=== PATIENT | female | born 1965 | race Caucasian/White ===

== ENCOUNTER 2020-08-02 14:16 | Outpatient (CLI) | payer OTHER, SELFPAY ==
--- NOTE | ~2020-08-02 | MM_ITS ---
EXAMINATION: MM screening michelle BI w salomón HISTORY: Screening TECHNIQUE: Craniocaudal and mediolateral oblique 3-D tomosynthesis images were obtained and synthetic 2-D images were generated. CAD analysis was submitted and interpreted. COMPARISON: Comparison to multiple prior studies sequentially, with oldest reviewed study dated 12/06. BREAST PARENCHYMAL COMPOSITION: The breasts are extremely dense, which lowers the sensitivity of mamm ography FINDINGS: There is no evidence of suspicious mass, calcification, or architectural distortion to sugg est malignancy in either breast. There has been no suspicious interval change. IMPRESSION: 1. No mammographic evidence of malignancy. 2. Recommend routine screening mammography in one year. BI-RADS Category 1: Negative Reviewed, dictated and finalized at location A. CTION COORDINATION POWER ENGINEER
== END 2020-08-02 14:17 | disposition home or self-care (01) ==
LOC: ANHIMG 14:19
PROVIDERS: Visit Provider Obstetrics & Gynecology
DX: Z12.31 Encounter for screening mammogram for malignant neoplasm of breast (principal)
CPT/HCPCS: 77063; 77067

== ENCOUNTER → 2020-08-20 12:58 | Outpatient (CLI) | payer OTHER, SELFPAY ==
--- NOTE | ~2020-08-20 | US_ITS ---
EXAMINATION: US transvaginal DATE: 08/20/2020 13:39 INDICATION: Postmenopausal bleeding Comparison:Ultrasound dated 03/11/2018 TECHNIQUE: Multiple endovaginal sonographic images of the pelvis performed. FINDINGS: The uterus measures 6.4 x 3.5 x 5.9 cm. Uterus is retroverted. The endometrial complex lauren ures 6 mm. The right ovary measures 1.6 x 0.7 x 1.7 cm and the left ovary measures 3.4 x 2.9 x 3.4 cm. There is a complex hypoechoic left adnexal mass measuring 3.2 x 3.1 x 2.6 cm containing coarse internal echoge ivan foci. There is no free fluid in the pelvis. There are no abnormal masses seen on either side. IMPRESSION: 1. Complex 3.2 cm left adnexal mass. Differential diagnosis includes benign etiologies such as hemorr hagic cyst, proteinaceous cyst, cystadenoma, complex peritoneal inclusion cyst and malignancy includi ng cystadenocarcinoma. 2: Thickened endomtrial complex. The differential diagnosis includes endometrial hyperplasia, polyp a nd carcinoma. Biopsy is recommended. Reviewed, dictated and finalized at location A. EBOARD OPERATOR IMPRESSION: 1. Complex 3.2 cm left adnexal mass. Differential diagnosis includes benign halie ologies such as hemorrhagic cyst, proteinaceous cyst, cystadenoma, complex cassie toneal inclusion cyst and malignancy including cystadenocarcinoma. 2: Thickened endomtrial complex. The differential diagnosis includes endometria l hyperplasia, polyp and carcinoma. Biopsy is recommended.
== END ==
PROVIDERS: Visit Provider Obstetrics & Gynecology
DX: N95.0 Postmenopausal bleeding (principal); R19.09 Other intra-abdominal and pelvic swelling, mass and lump
CPT/HCPCS: 76830

== ENCOUNTER → 2020-10-30 00:13 | Outpatient (CLI) | payer OTHER, SELFPAY ==
[2020-10-30 20:45] LABS: SARS-CoV-2 RNA PCR Negative
== END ==
PROVIDERS: Visit Provider Obstetrics & Gynecology
DX: Z01.812 Encounter for preprocedural laboratory examination (principal); Z20.822 Contact with and (suspected) exposure to COVID-19
CPT/HCPCS: C9803; U0003; U0005

== ENCOUNTER 2020-11-02 00:14 | Day surgery (SDC) | payer OTHER, SELFPAY ==
[2020-10-22 14:02] VITALS: BMI 22.1
--- NOTE | 2020-11-02 09:30 | PM.HPGS ---
History of Present Illness History of Present Illness Consent: Risks, benefits, and alternatives have been discussed and questions answered. Patient agrees to proceed with procedure. Chief complaint: post menopausal bleeding Narrative: Lakeshia Govea is a 55 year old female nullip presented to the office with post menopausal bleeding. Review of Systems Review of Systems: All systems reviewed & are unremarkable except as noted in HPI and below PMFSH Past Medical History Medical History (Updated 11/02/20 @ 09:35 by Tate Landaverde MD) Postmenopausal bleeding Social History Social History Smoking status: Never smoker Alcohol intake: current Drinks per week: 7 Substance use: never Substance use type: does not use Living arrangements: with family Spiritual care concerns: No Meds Home Medications and Allergies Home Medications Medication Instructions Recorded Confirmed Type No Home Medications 10/22/20 10/22/20 History Allergies Allergy/AdvReac Type Severity Reaction Status Date / Time acetaminophen [From Vicodin] Allergy Intermediate Nausea and Verified 10/22/20 14:01 Vomiting fentanyl Allergy Intermediate Nausea and Verified 10/22/20 14:01 Vomiting hydrocodone [From Vicodin] Allergy Intermediate Nausea and Verified 10/22/20 14:01 Vomiting Exam Resp: Effort & Inspection: normal respiratory effort Cardio: Rate: regular rate Rhythm: regular rhythm GI: Inspection: normal to inspection : External Female Exam: normal external appearance Speculum Exam - Vagina: normal appearance of the vagina Speculum Exam - Cervix: normal appearance of the cervix Bimanual exam- vagina & uterus: normal bimanual exam Assessment and Plan Assessment and plan (1) Postmenopausal bleeding: Code(s): N95.0 - Postmenopausal bleeding Status: Acute Assessment and Plan: scheduled for a hysteroscopy dilation and curettage. Risk and benefits reviewd in detail.
--- NOTE | 2020-11-02 13:06 | WPDHPUPDATE1 ---
History and Physical Update Update Date/Time: 11/02/20 13:06 History and Physical has been reviewed, including an updated exam of the patient. There are NO changes in the patient's condition. Risks, benefits, and alternatives have been discussed and questions answered. Patient agrees to proceed with procedure.
--- NOTE | 2020-11-02 13:10 | SUR.PREOP ---
1255; CALLED PT TO COME IN EARLY, NO ANSWER, MESSAGE LEFT ON VM
--- NOTE | 2020-11-02 13:47 | SUR.PREOP ---
1340; PT ATE LUNCH CONSISTING OF CARROTS AND HUMMUS, SALTINE CRACKERS, AND 2 GLASSES OF WATER AT 1230. DR BROWN AND DR FULTON NOTIFIED. PT TOOK HOME XANAX WITH WATER AT [address] BROWN INSTRUCTIONS.
[2020-11-02 13:55] VITALS: BMI 23.2
[2020-11-02 14:06] VITALS: BP 131/79; PULSE 83; RESP 18; TEMP 37.2; O2SAT 100
[2020-11-02 14:55] VITALS: BP 141/80; PULSE 92; RESP 16; O2SAT 99
[2020-11-02 15:05] VITALS: BP 162/89; PULSE 82; RESP 18; O2SAT 99
[2020-11-02] MEDS: LIDOCAINE HCL 1% LOCAL INJ 20 ML VIAL 50 ML INFILTRATE (15:06)
[2020-11-02 15:15] VITALS: BP 152/79; PULSE 76; RESP 18; O2SAT 100
[2020-11-02 15:20] VITALS: BP 147/90; PULSE 70; RESP 20; O2SAT 97
--- NOTE | 2020-11-02 15:28 | PM.PROC ---
Procedure Note - Detailed Date of procedure: 11/02/20 Pre-op diagnosis: post menopausal bleeding Post-op diagnosis: same Procedure performed: hysteroscopy with dilation and curettage Description of procedure: Patient was taken to the at the OR with IV running she was prepared and draped in a normal sterile fashion. And placed in a lithotomy position a bivalve speculum was placed into the vagina. The anterior lip of the cervix was grasped with a single-tooth tenaculum the cervix was injected at the 2 and 10 o'clock position with 5cc of lidocaine bilaterally the uterus was sounded to 7cm and the cervix was serially dilated with Hegar dilators to a 7. The hysteroscope was introduced and noted atrophic uterus. The hysteroscope was removed and a sharp curettage was performed in all 4 quadrants of the uterus and sent to pathology. Patient tolerated the procedure well was taken to recovery room in stable condition. Anesthesia: local Surgeon: Tate Landaverde MD Estimated blood loss (mL): 10 Drains: No Packing: No Pathology: yes Complications: None Condition: stable Disposition: same day Findings: atrophic uterus
== END 2020-11-02 15:54 | disposition home or self-care (01) ==
PROVIDERS: Visit Provider Obstetrics & Gynecology
PROC: 0U5B8ZZ Destruction of Endometrium, Via Natural or Artificial Opening Endoscopic (ICD-10-PCS; CPT 58563; principal; 2020-11-02 14:30)
DX: N95.0 Postmenopausal bleeding (principal)
CPT/HCPCS: 58558; 88305; A9270; J7030

== ENCOUNTER 2021-08-19 15:05 | Outpatient (CLI) | payer BC, OTHER, SELFPAY ==
--- NOTE | ~2021-08-19 | MM_ITS ---
EXAMINATION: MM screening michelle BI w salom[place] HISTORY: Screening TECHNIQUE: Craniocaudal and mediolateral oblique 3-D tomosynthesis images were obtained and synthetic 2-D images were generated. CAD analysis was submitted and interpreted. COMPARISON: Comparison to multiple prior studies sequentially, with oldest reviewed study dated 04/20. BREAST PARENCHYMAL COMPOSITION: The breasts are extremely dense, which lowers the sensitivity of mamm ography FINDINGS: There is no evidence of suspicious mass, calcification, or architectural distortion to sugg est malignancy in either breast. There has been no suspicious interval change. IMPRESSION: 1. No mammographic evidence of malignancy. 2. Recommend routine screening mammography in one year. BI-RADS Category 1: Negative Reviewed, dictated and finalized at location A. RONMENTAL HEALTH SANITARIAN
== END 2021-08-19 15:06 | disposition home or self-care (01) ==
PROVIDERS: PCP Family Medicine; Visit Provider Family Medicine
DX: Z12.31 Encounter for screening mammogram for malignant neoplasm of breast (principal)
CPT/HCPCS: 77063; 77067

== ENCOUNTER 2022-10-16 16:27 | Outpatient (CLI) | payer BC, OTHER, SELFPAY ==
--- NOTE | ~2022-10-16 | MM_ITS ---
EXAMINATION: MM screening michelle BI w salom[place] HISTORY: Screening TECHNIQUE: Craniocaudal and mediolateral oblique 3-D tomosynthesis images were obtained and synthetic 2-D images were generated. CAD analysis was submitted and interpreted. COMPARISON: Comparison to multiple prior studies sequentially, with oldest reviewed study dated 04/20. BREAST PARENCHYMAL COMPOSITION: The breasts are extremely dense, which lowers the sensitivity of mamm ography FINDINGS: There is no evidence of suspicious mass, calcification, or architectural distortion to sugg est malignancy in either breast. There has been no suspicious interval change. IMPRESSION: 1. No mammographic evidence of malignancy. 2. Recommend routine screening mammography in one year. BI-RADS Category 1: Negative Reviewed, dictated and finalized at location A.
== END 2022-10-16 16:28 | disposition home or self-care (01) ==
PROVIDERS: PCP Family Medicine; Visit Provider Obstetrics & Gynecology
DX: Z12.31 Encounter for screening mammogram for malignant neoplasm of breast (principal)
CPT/HCPCS: 77063; 77067

== ENCOUNTER 2024-02-18 12:47 | Outpatient (CLI) | payer BC, OTHER, SELFPAY ==
--- NOTE | ~2024-02-18 | MMUS_ITS ---
EXAMINATION: MM diagnostic michelle BI w salom[place], US breast BI complete HISTORY: Palpable breast abnormality. TECHNIQUE: Additional 3-D tomosynthesis images of the breasts were performed and synthetic 2-D images were generated. CAD analysis was submitted and interpreted. High resolution bilateral complete breas t ultrasound was performed. COMPARISON: Comparison to multiple prior studies sequentially, with oldest reviewed study dated 05/20. BREAST PARENCHYMAL COMPOSITION: Dense: The breasts are extremely dense, which lowers the sensitivity of mammography. FINDINGS: MAMMOGRAPHIC FINDINGS: There are no suspicious masses, calcifications or architectural distortion in either breast to sugges t malignancy. ULTRASOUND: Complete bilateral US of all 4 quadrants of the breasts and retroareolar region was reviewed. Normal heterogeneous echotexture without focal solid or cystic mass. IMPRESSION: 1. No evidence for malignancy in either breast. 2. Routine yearly screening mammogram and regular clinical breast examination are recommended. BI-RADS CATEGORY 1 - NEGATIVE Reviewed, dictated and finalized at location B. IMPRESSION: 1. No evidence for malignancy in either breast. 2. Routine yearly screening mammogram and regular clinical breast examination a re recommended. BI-RADS CATEGORY 1 - NEGATIVE
== END 2024-02-18 12:48 | disposition home or self-care (01) ==
PROVIDERS: PCP Family Medicine; Visit Provider Obstetrics & Gynecology
DX: N63.21 Unspecified lump in the left breast, upper outer quadrant (principal)
CPT/HCPCS: 76641; 77062; 77066; G0279

== ENCOUNTER 2024-06-13 00:09 | Day surgery (SDC) | payer BC, OTHER, SELFPAY ==
[2024-06-07 12:38] VITALS: BMI 21.9
--- NOTE | 2024-06-07 12:55 | PC.NURSE ---
Report to the Outpatient Waiting Room, entrance under the green pavilion located off [facility], at time _09:00am____on date _06/13/24 __Planned Procedure Time: 1100am .? Time changes happen often and if your time is changed the preop area will call you the afternoon before. - You and your visitor will be asked to self-screen and do not enter if you have any COVID symptoms. Please call surgeon if you need to reschedule. - A mask is optional within the hospital at this time. Patients may have clear liquids (water, carbonated beverages, clear teas, apple juice) until 3 hours prior to surgery with a maximum of 20 ounces. - No food from midnight until time of surgery and no smoking. This includes no chewing gum, candy or mints.(0800am) Take only the following medications with a SIP of water on the morning of surgery: None DO NOT STOP ANY OF YOUR OTHER PRESCRIPTION MEDICATIONS PRIOR TO SURGERY EXCEPT THE FOLLOWING Medications to discontinue per physician None Date to take last dose None Please no make-up, nail turkmen, hairspray, perfume, deodorant, or body powder the day of surgery.? No jewelry (including any body piercings) or valuables the day of surgery, leave them at home.? Please take a shower or bath the night before, or the morning of, surgery with an antibacterial soap.? Wear comfortable, loose fitting clothing. - Jewelry must be removed prior to entering the operating room.? Rings and piercings that are not removed may be cut off. - The hospital will not accept responsibility for valuables.? - Please leave all valuables, including medications, at home the day of surgery. If you are going home after surgery, a licensed hi lo driver must drive you home.? - NO public transportation without another adult if you receive anesthesia. - We recommend that an adult stay with you for 24 hours following discharge. - We also recommend that you do not drive, make important decision, drink alcoholic beverages, or take any drugs that were not prescribed by your health care provider for at least 24 hours after your discharge time. Follow any additional instructions given to you from your surgeon. Telephone instructions given to __patient and asked if any additional questions and then verbalized understanding. Patient advised to call surgeon office or pre surgery nurse liaison [phone] if any additional questions.
--- NOTE | 2024-06-12 14:07 | PM.IMHP ---
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 She knew that she had a history of adnexal mass when she was seen at [facility]. She has a h/o HSC/D&C in 2016 and 2020 due to PMB; benign tissue noted on path. US in 10/2020 also showed a left adnexal mass measuring 3.3cm. Repeat BIOFUELS TECHNOLOGY DEVELOPMENT MANAGER US 01/2024 showed a complex adnexal mass measuring ~3.3cm. Tumor markers were negative. She does have a h/o PMB; s/p D&C x2, but endometrial stripe was normal, has not had any further episodes of PMB since her last D&C. She denies any overt pelvic pain. She does report that her mother did have ovarian cancer, and wants to proceed with surgery; has done a lot of research herself. Review of Systems Constitutional: Constitutional: Denies chills, Denies fever(s) and Denies headache(s) Eyes: Eyes: Denies change in vision ENT: Denies dizziness and Denies headache(s) Cardiovascular: Cardiovascular: Denies chest pain and Denies dyspnea Respiratory: Respiratory: Denies cough and Denies dyspnea Gastrointestinal: Gastrointestinal: Denies abdominal pain and Denies change in stool character Genitourinary: Genitourinary: Denies abnormal menses, Denies pelvic pain, Denies vaginal discharge, Denies vaginal odor and Denies vaginal pruritus Neurologic: Denies dizziness and Denies headache(s) Psychiatric: Psychiatric: Denies anxiety and Denies depression [facility]LY [facility] Past Medical History Medical History Ovarian mass, left Postmenopausal bleeding Surgical History Surgical History H/O breast biopsy H/O gynecological procedure hscope D&C ~ 2020 H/O lumpectomy H/O wisdom tooth extraction Family History Family History Mother Hypertension Breast cancer Ovarian cancer Social History Social History Smoking status: Never smoker Alcohol intake: current Drinks per week: 1 Alcohol use details: occasional Substance use: never Substance use type: does not use Do You Feel Safe in your Home?: Yes Lack of Transportation: No Lack of Food: Never True Current Housing: I Have Housing Concerned About Future Housing: No Difficulty Paying Gas/Electric Bills: No Difficulty Paying for Meds: No Currently Unemployed: No Education: Master's Degree or Higher Difficulty w/ Childcare or Family Care: No Living arrangements: with family Additional living arrangements comments: daughter Occupation/Education: occupation Additional occupation/education comments: [employer] Gender identity (if verbalized by the patient): Female Sexual Orientation (if Verbalized by the Patient): Straight or Heterosexual Spiritual care concerns: No Meds Home Medications and Allergies Home Medications Medication Instructions Recorded Confirmed Type No Home Medications 10/22/20 06/07/24 History Allergies Allergy/AdvReac Type Severity Reaction Status Date / Time acetaminophen [From Vicodin] Allergy Intermediate Nausea and Verified 06/07/24 12:37 Vomiting fentanyl Allergy Intermediate Nausea and Verified 06/07/24 12:37 Vomiting hydrocodone [From Vicodin] Allergy Intermediate Nausea and Verified 06/07/24 12:37 Vomiting Exam Const: General: cooperative, healthy appearing, comfortable and no acute distress Orientation/consciousness: patient oriented x3 Resp: Effort & Inspection: normal respiratory effort Cardio: Rate: regular rate GI: Inspection: normal to inspection GI Palp: No abdominal tenderness and Yes Soft to palpation : Other: deferred to OR Skin: General skin exam: normal color Neuro: General: patient oriented x3 Extrem: General: normal to inspection Psych: Appearance: grossly normal Affect: normal affect Attitude: cooperative Assessment and Plan Assessment and plan (1) Ovarian mass, left: Code(s): N83.8 - Other noninflammatory disorders of ovary, fallopian tube and broad ligament Status: Acute Plan - US findings discussed in detail and the reassuring and concerning findings - Her tumor markers are completely normal, which is very reassuring that this is a benign mass (also that she has known she's had this known cyst for >3 years and it continues to only be ~3.3cm) - Discussed that we do not biopsy ovarian masses, usually just proceed with removal - Due to her age and family h/o ovarian cancer, recommend removal of both ovaries and tubes - Discussed laparoscopic bilateral salpingo-oophorectomy in detail including the risks, benefits, and downtime
[2024-06-13] VITALS (9 sets, daily range): BP systolic 136–152; BP diastolic 66–80; PULSE 60–78; RESP 14–20; TEMP 36.3–37.2; O2SAT 99–100
--- NOTE | 2024-06-13 06:37 | WPDHPUPDATE1 ---
History and Physical Update Update Date/Time: 06/13/24 06:37 History and Physical has been reviewed, including an updated exam of the patient. There are NO changes in the patient's condition. Risks, benefits, and alternatives have been discussed and questions answered. Patient agrees to proceed with Laparoscopic bilateral salpingo-oophorectomy.
[2024-06-13] MEDS: LACTATED RINGERS 1,000 ML 30 ML IV CONT ×2 (09:40→13:06)
[2024-06-13] MEDS: KETOROLAC 15 MG/ML VIAL (*BKC) IV PUSH ×2 (10:30→12:52)
--- NOTE | 2024-06-13 11:02 | WPDANESEPPF ---
Anes - Initial Pre Proc Eval Procedure: Operation Date: 06/13/24 11:00 Proposed Procedures p Robotic Assisted Laparoscopic Bilateral Salpingo Oophorectomy - Stephie Rueda MD Date/Time: 06/13/24 11:02 Surgeon: Stephie Rueda MD Pre Op Diagnosis: Lt Ovarian Cyst Patient Data Age: 59 Gender: F Height: 1.65 m Weight: 58.2 kg Last Vital Signs Temp 99.0 F 06/13/24 09:00 Pulse 78 06/13/24 09:00 Resp 16 06/13/24 09:00 BP 152/80 H 06/13/24 09:00 Pulse Ox 100 06/13/24 09:00 O2 Del Method Room Air 06/13/24 09:00 Allergies Allergy/AdvReac Type Severity Reaction Status Date / Time acetaminophen [From Vicodin] Allergy Intermediate Nausea and Verified 06/13/24 10:06 Vomiting fentanyl Allergy Intermediate Nausea and Verified 06/13/24 10:06 Vomiting hydrocodone [From Vicodin] Allergy Intermediate Nausea and Verified 06/13/24 10:06 Vomiting Home Medications Medication Instructions Recorded Confirmed Type No Home Medications 10/22/20 06/13/24 History Laboratory Tests 06/13/24 09:30 Blood Type Pending Antibody Screen Pending Patient hx anesthesia problems: none Family hx anesthesia problems: none Results Review: All pre-operative results and documents have been reviewed as part of the pre-operative evaluation. [facility] Past Medical History Medical History Ovarian mass, left Postmenopausal bleeding Surgical History Surgical History H/O breast biopsy H/O gynecological procedure hscope D&C ~ 2020 H/O lumpectomy H/O wisdom tooth extraction Family History Family History Mother Hypertension Breast cancer Ovarian cancer Social History Social History Smoking status: Never smoker Alcohol intake: current Drinks per week: 1 Alcohol use details: occasional Substance use: never Substance use type: does not use Do You Feel Safe in your Home?: Yes Lack of Transportation: No Lack of Food: Never True Current Housing: I Have Housing Concerned About Future Housing: No Difficulty Paying Gas/Electric Bills: No Difficulty Paying for Meds: No Currently Unemployed: No Education: Master's Degree or Higher Difficulty w/ Childcare or Family Care: No Living arrangements: with family Additional living arrangements comments: daughter Occupation/Education: occupation Additional occupation/education comments: [employer] Gender identity (if verbalized by the patient): Female Sexual Orientation (if Verbalized by the Patient): Straight or Heterosexual Spiritual care concerns: No Anes - Eval Final PreProcedure Day of Procedure 06/13/24 11:02 Patient weight: normal Heart: regular rate and rhythm Lungs: clear to auscultation Airway: Mallampati scale class II Neurological: alert and oriented Last oral intake: >/= 8 hours ASA classification: II Emergent: no Anesthetic plan: proceed Anesthesia type and monitoring: general ETT and standard monitoring Results Review: All pre-operative results and documents have been reviewed as part of the pre-operative evaluation. Informed Consent: The patient's anesthetic plan and its attendant risks and benefits were discussed with the patient/family/POA. Questions were solicited and answers provided to the satisfaction of the patient/family/POA.
[2024-06-13] MEDS: BUPIVACAINE/EPINEPHRINE 0.5% 50 ML VIAL 30 ML INFILTRATE (12:14)
--- NOTE | 2024-06-13 12:55 | P.OP_ITS ---
Procedure Note - Detailed Date of Procedure 06/13/24 Pre-op Diagnosis Lt Ovarian Cyst Post-op Diagnosis Same Procedure Performed Robotic assisted bilateral salpingo-oophorectomy, pelvic washings Surgeon Stephie Rueda MD Anesthesia General and Local (20cc of 0.5% marcaine w/ epi) Findings Uterus sounded to 6cm; small fibroid fundal/posteriorly noted, otherwise normal appearing. Normal right ovary and tubes. Left ovary with 3-4cm cyst. Good hemostasis at end of case. Pt requested that no narcotics were used during or after her surgery. Description of Procedure Lakeshia was taken to the operating room where she was placed under general anesthesia without issues. No pre-operative antibiotics were indicated. She was then prepped and draped in the usual sterile fashion in the dorsal lithotomy position with her legs in low Dawood stirrups, her arms tucked at her side, with a strap over her chest. A time-out was performed. My attention was turned down below where a Perez catheter was placed. A bivalve speculum was placed within the vagina. The cervix was easily identified and the anterior lip of the cervix was grasped with single-tooth tenaculum. The uterus was then sounded to 6cm. The cervix was serially dilated to allow for the [place] manipulator which was placed w/o issue. My gloves were changed and attention was then turned to the abdomen. After confirmation that an OG tube was in place; a 5 mm trocar was placed under direct visualization at Jaime's point without issue. Once intra- abdominal placement was confirmed, the abdomen was insufflated with carbon dioxide gas. An abdominal survey was performed and the above findings were noted. Two additional ports were placed on the right and left side and the camera port was placed supraumbilically under direct visualization without issues. The 5mm port was switched out for the accessory port under direct visualization. The patient was then placed in deep Trendelenburg, with the legs slightly lowered. The robot was then docked. The instruments were placed intra- abdominally under direct visualization. I then un-scrubbed and went to the robotic console. The uterus, ovaries and fallopian tubes were washed with normal saline and that fluid was then collected for pelvic washings. I then started surgery on the right side. The ureter was easily identified transperitoneally and well out of the surgical field. The IP ligament was identified and serially clamped, coagulated, and transected with good hemostasis. The uteroovarian ligament was then serially clamped, coagulated, and transected with good hemostasis. The broad ligament was then serially clamped, coagulated, and betts sected with good hemostasis and the ovary and tube were released. It was placed within the posterior cul-de-sac until the other ovary was released. The same procedure was then performed on the left side without complications. The left ovary/tube/cyst was then placed within a bag. The right ovary and tube were also placed in the same bag. The bag containing the ovaries/tubes was then brought up through the accessory port. I then scrubbed back into surgery and the accessory port was removed from the abdomen. The bag was brought out through the skin incision and opened and the right ovary/tube (normal appearing) was removed without issue. The left fallopian tube was then grasped and removed. The left ovary with cyst in the bag was unable to be pulled through the incision, even with attempting to stretch the fascial incision. The fascial incision was then slightly extended using curved Rosales scissors. The skin incision was extended using the scalpel. The left ovary/cyst in the bag was then easily removed from the abdomen. The fascia was then grasped using small Ami clamps. The fascia was then reapproximated in a running fashion using 0-Vicryl stitch and no further pneumoperitoneum was noted to be released. All instruments and ports were then removed from the abdomen. The subcutaneous tissue was reapproximated using a single 0-Vicryl stitch. The 4 laparoscopic incisions were then reapproximated using 4-0 Monocryl and covered with Dermabond. The laparoscopic incisions were infiltrated with local anesthesia for better pain control. The Perez catheter and acorn uterine manipulator were removed. Sponge, lap, instrument, and needle counts were correct at the end the procedure. Patient was awoken from general anesthesia and taken to recovery in a stable conditions with plans of discharge home. Estimated Blood Loss 20 IV Fluids 1,000 Urine Output 100 Pathology Yes (left and right ovary and fallopian tubes) Complications No immediate complications Condition Stable Disposition Same day [facility] Billing Surgery - Charge Forward: Surgery Billing
--- NOTE | 2024-06-13 13:34 | SUR.PHASEI ---
1330: Simple mask removed.
[2024-06-13] MEDS: ONDANSETRON INJ 4 MG/2 ML VIAL IV PUSH (14:23)
== END 2024-06-13 15:43 | disposition home or self-care (01) ==
PROVIDERS: PCP Family Medicine; Visit Provider Obstetrics & Gynecology
PROC: 8E0W4CZ Robotic Assisted Procedure of Trunk Region, Percutaneous Endoscopic Approach (ICD-10-PCS; CPT 49320; principal; 2024-06-13 11:00)
DX: N83.8 Other noninflammatory disorders of ovary, fallopian tube and broad ligament (principal); N83.292 Other ovarian cyst, left side; N83.291 Other ovarian cyst, right side; D39.12 Neoplasm of uncertain behavior of left ovary; Z98.890 Other specified postprocedural states; Z80.3 Family history of malignant neoplasm of breast; Z80.41 Family history of malignant neoplasm of ovary
CPT/HCPCS: 58661; S2900; 36415; 86850; 86900; 86901; 88108; 88302; 88305; J1100; J1885; J1940; J2003; J2405; J2704; J7120

== ENCOUNTER 2025-07-10 03:43 | Day surgery (SDC) | payer BC, OTHER, SELFPAY ==
[2025-06-21 08:27] VITALS: BMI 20.1
--- OUTSIDE RECORDS SUMMARY | 2025-07-10 03:46 | XMS_ITS | Clinical Summary ---
Author Organization [facility] [address] Address [address] [place] [id number] Care Team Providers Care Laminator Hand Name Role Phone Walt Ham MD Primary Care Provider Allergies Active Allergy Reactions Criticality Noted Date Comments Acetaminophen Nausea & Vomiting High 06/13/2024 Fentanyl Vomiting Low 02/06/2022 Hydrocodone Nausea & Vomiting High 06/13/2024 Hydrocodone-Acetaminophen Medications multivitamin capsule Take 1 capsule by mouth daily Active Active Problems Problem Noted Date Diagnosed Date Breast lump on left side at 2 o'clock position 1 Ovarian mass, left 05/01/2025 Postmenopausal bleeding 05/01/2025 Well woman exam 06/19/2022 Overview (07/18/2022): Lab: Pap:1990 had an abnormal, but she blames it on the [employer], normal since. Labs with pcp Michelle:due in Jul 2022 Colonoscopy:2013- 2023 BMD: Gardasil:she didn't do Assessment & Plan (07/18/2022 1:10 PM [employer]): Pap done. RTO 12m. I will send the results to the portal. If she has not heard in a week, to call the office. Vulvar irritation 06/19/2022 Assessment & Plan (07/18/2022 1:12 PM [employer]): Normal appearing exam today To let me know when the irritation returns Ways to discuss vaginal dryness briefly discussed Family history of ovarian cancer 06/19/2022 Overview (06/19/2022): 06/19/22 mom with breast and ovarian. Mu daughter with breast. Assessment & Plan (06/19/2022 2:24 PM [employer]TER): She will bring her results Dense breast tissue on mammogram 06/19/2022 Overview (06/19/2022): Pt aware Assessment & Plan (06/19/2022 2:24 PM [employer]): She is aware To michelle after first of year Encounter for medical examination to establish c are 02/07/2022 Assessment & Plan (02/07/2022 9:55 PM CDT): A(n) initial well visit to establish care has been performed today. Lakeshia Govea is not up to date on screening tests. She is in need of Breast cancer screening, Colon cancer screening, Cholesterol screening and Cervical cancer screening. She is not up to date on needed preventative vaccinations; She is in need of Tdap/Td, Zoster and Covid-19 (booster). Labs as ordered Continue good exercise practice DASH handout given Chronic infection of sinus 08/08/2011 Encounters Date Type Department Care Team Description 05/03/2025 Results Follow-Up [facility] at [address] [phone] Magda Pham PA Urine culture Urine, clean voided 05/01/2025 7:49 PM CDT - 05/01/2025 11:59 PM CDT Hospital Encounter [address] [address] Acute cystitis with hematuria Discharge Disposition: Discharge to home or self care 05/01/2025 7:45 PM CDT Office Visit [facility] [address] [phone] Prema Monroy NP Acute cystitis with hematuria (Primary Dx) from Last 3 Months Immunizations Immunization Administration Dates Next Due Influenza, Quadrivalent, Spl it, Preservative Free, Intramuscular 06/16/2018 Influenza, Unspecified 07/20/2021(Deferr ed: Patient Refused),07/20/2020(Deferred: Patient Refused) Surgical History Surgery Date Site/Laterality Comments WISDOM TOOTH EXTRACTION BREAST LUMPECTOMY Right benign DILATION AND CURETTAGE OF UTERUS 07/20/2020 - 07/19/2021 Medical History Medical History Date Comments Dense breast tissue on mammogram 2010 Family History Medical History Relation Name Comments No Known Problems Brother Coronary artery disease Father cabg x 4 Breast cancer Mother Hypertension Mother Obesity Mother Ovarian cancer Mother no genetic te sting. Heart attack Paternal Grandfather Hypertension Sister Obesity Sister Cancer Neg Hx no colon cancer cmt 06/19/22 She is negative for Brca 2010. Relation Name Status Comments Brother Alive Father Alive Maternal Grandfather Maternal Grandmother Mother Paternal Grandfather Paternal Grandmother Sister Alive Social History Tobacco Use Types Packs/Day Years Used Date Smoking Tobacco: Never AUDIT-C Answer Date Recorded Q1: How often do you have a drink containing alcohol? 4 or more times a week 06/19/2022 Q2: How many drinks containi ng alcohol do you have on a typical day when you are drinking? 1 or 2 Q3: How often do you have si x or more drinks on one occasion? Never 06/19/2022 PHQ-2 Answer Date Recorded PHQ-2 Total Score (If total score is 3 or more points, staff should administer the PHQ-9) 0 06/19/2022 Education Answer Date Recorded What is the highest level of school you have completed or the highest degree you have received? 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 Not on file Not on file Not on file Obstetrics History Para Term AB IAB SAB Ectopic Multiple Livin g Live Births 1 1 1 Date Outcome GA Total Labor Labor/2nd/3rd Weight Sex Type Anes PTL Ailyn A1 A5 Name Clin IAB Last Filed Vital Signs Vital Sign Reading Time Taken Comments Blood Pressure 131/82 05/01/2025 7:46 PM CDT Pulse 72 05/01/2025 7:46 PM CDT Temperature 36.8 C (98.2 F) 05/01/2025 7:46 PM CDT Respiratory Rate 18 05/01/2025 7:46 PM CDT Oxygen Saturation 99% 05/01/2025 7:46 PM CDT Inhaled Oxygen Concentration - - Weight 57.2 kg (126 lb) 05/01/2025 7:46 PM CDT Height 166.4 cm (5' 5.5) 02/06/2022 10:16 AM CD T Body Mass Index 20.65 02/06/2022 10:16 AM CDT Plan of Treatment Health Maintenance Due Date Last Done Comments Colon Cancer Screening-Colonoscopy 1963 DTaP/Tdap/Td Vaccine (1 - Tdap) 1974 Hepatitis B Screening 1981 Zoster Vaccine (1 of 2) 2013 Cervical Cancer Screening 06/19/2023 06/19/2022 Depression Screening 06/19/2023 06/19/2022, 02/06/2022 Regular Well Visit/Exam 18-64 06/19/2023 06/19/2022 Breast Cancer Screening-Mammogram 02/17/2025 02/18/2024, 10/16/2022 Covid-19 Vaccine (2024-2 6 season) 2025 05/24/2021, 11/08/2020, 10/11/2020 Influenza Vaccine (#1) 2025 06/16/2018 Hepatitis C Screening Completed 02/07/2022 Pneumococcal vaccine <65 Aged Out No longer eligible based on patient's age to complete this topic Procedures Procedure Name Priority Date/Time Associated Diagnosis Comments POCT URINALYSIS DIPSTICK Routine 05/01/2025 7:50 PM CDT Acute cystitis with hematuria URINE CULTURE Routine 05/01/2025 7:49 PM CDT Acute cystitis with hematuria HM MAMMOGRAPHY Routine 02/18/2024 2:54 PM CDT PAP AND HIGH RISK HPV, REFLEX TO GENOTYPING Routine 06/19/2022 2:40 PM [employer] Well woman exam HEPATITIS C ANTIBODY Routine 02/07/2022 10:14 AM CDT Encounter for hepatitis C screening test for low risk patient from Last 3 Months or Most Recently Relevant to Health Maintenance Results * (ABNORMAL) POCT urinalysis dipstick (05/01/2025 7:50 PM CDT) Color, Urine, POC Light Yellow Clarity, ur, POC Clear Clear Glucose, ur, POC Negative Negative Bilirubin, ur, POC Negative Negative Ketones, ur, POC Negative Negative Specific [place], POC 1.015 1.003 - 1.030 Blood, ur, POC Small(A) Negative pH, ur, POC 7.0 5.0 - 8.0 Protein, ur, POC Negative Negative Urobilinogen, urine, POC 0.2 0.2 - 1.0 mg/dL Nitrite, ur, POC Negative Negative Leukocytes, ur, POC Moderate(A) Negative Lot Number [id number] Urine 05/01/2025 7:50 PM CDT Prema Monroy NP POINT OF CARE TEST ORDERABLES Final Result * (ABNORMAL) Urine culture Urine, clean voided (05/01/2025 7:49 PM CDT) Report Final Report: Greater than or equal to 100,000 colonies/mL of Escherichia coli Plus growth of clinically insignificant bacterial samuel. (.) Comment:Testing performed by : [facility], [address] [facility] [place] [address] Organism ESCHERICHIA COLI DIAZ Organism PLUS GROWTH OF CLINICALLY INSIGNIFICANT SAMUEL. DIAZ Urine, clean voided 05/01/2025 7:49 PM CDT 05/02/2025 12:11 AM CDT Narrative DIAZ - 05/03/2025 2:49 PM CDT Testing performed by [facility] ([phone]) Organism Antibiotic Method Susceptibility Escherichia coli Ampicillin INTERPRETATION Susceptible Escherichia coli Cefazolin INTERPRETATION Susceptible Escherichia coli Nitrofurantoin INTERPRETATION Susceptible Escherichia coli Gentamicin INTERPRETATION Susceptible Escherichia coli Trimethoprim with Sulfamethoxazole IN TERPRETATION Susceptible Escherichia coli Meropenem INTERPRETATION Susceptible Escherichia coli Cefepime INTERPRETATION Susceptible Escherichia coli Ciprofloxacin INTERPRETATION Susceptible Escherichia coli Ceftazidime INTERPRETATION Susceptible Escherichia coli Ceftriaxone INTERPRETATION Susceptible Escherichia coli Piperacillin/Tazobactam INTERPRETATIO N Susceptible Escherichia coli Cephalexin INTERPRETATION Susceptible Escherichia coli Cefuroxime-axetil INTERPRETATION Susceptible Escherichia coli Cefdinir INTERPRETATION Susceptible Prema Monroy NP LAB MICROBIOLOGY - GENERAL ORD ERABLES Final Result DIAZ [id number] Department [place] [address] * HM MAMMOGRAPHY (02/18/2024 2:54 PM CDT) Historical Provider MD HEALTH MAINTENANCE Final Result * Pap and High Risk HPV, reflex to Genotyping (06/19/2022 2:40 PM REC[employer]TER) CLINICAL INFORMATION: [facility] Comment:Routine exam LMP [facility] Comment:UNKNOWN Previous Pap [facility] Comment:NONE GIVEN Prev. Bx [facility] Comment:NONE GIVEN SOURCE: [facility] Comment:Cervix, Endocervix Pap, specimen adequacy [facility] Comment:SATISFACTORY FOR SHEA LUATION HPV interp [facility] Comment: Negative for intraepithelial lesion or malignancy. Atrophic pattern; predominantly parabasal cells Lead Recreation Assistant Dwayne Cox [place] Comment: LM, CT(ASCP) CT screening location: [place] [address] [address] [place] [address] Comment [facility] Comment: EXPLANATORY NOTE: The Pap is a screening test for cervical cancer. It is not a diagnostic test and is subject to false negative and false positive results. It is most reliable when a satisfactory sample, regularly obtained, is submitted with relevant clinical findings and history, and when the Pap result is evaluated along with historic and current clinical information. Human papillomavirus DNA, High Risk E6/E7 Not Detected NOT DETECTED [facility] /Nabil LUCERO Comment: Not Detected High Risk HPV types (16,18,31,33,35,39,45,51,52, 56,58,59,66,68) were not detected. Other HPV types which cause anogenital lesions may be present. The significance of the other types of HPV in malignant processes has not been established. Methodology: Real Time PCR Thin prep 06/19/2022 2:40 PM [employer] 06/20/2022 1:14 AM [employer] Edda Gaston MD LAB CYTOLOGY ORDERA BLES Final Result Performing Organization Address City/[facility] Co de Phone Number [facility] [address] [facility] [place] [address] [facility] [address] [facility] [place] [address] * Hepatitis C antibody (02/07/2022 10:14 AM CDT) Hep C Ab Nonreactive Nonreactive [facility]ENDERSON Comment: Interpretive Data Nonreactive: Antibodies to HCV not detected. Does NOT exclude the possibility of recent exposure to HCV. Equivocal: Equivocal for HCV antibodies. Supplemental molecular testing will be automatically performed to determine infection status in accordance with current CDC screening recommendations. Reactive: Positive for HCV antibodies. This may represent current or past HCV infection. Supplemental molecular testing will be automatically performed to determine current infection status in accordance with current CDC screening recommendations. Interpretive data was last revised on 2019. Blood 02/07/2022 10:1 4 AM CDT 02/07/2022 8:07 PM CDT Walt Ham MD LAB MICROBIOLOGY - GENERAL ORDERABLES Final Result Performing Organization Address [facility] Co de Phone Number DIAZ [address] Department [place] [address] from Last 3 Months or Most Recently Relevant to Health Maintenance Insurance [facility] Care Teams Laminator Hand Relationship Specialty Start Date End Date Walt Ham MD [address] [place] [address] PCP - General Family Medicine 02/04/22
[2025-07-10 07:06] VITALS: BP 154/87; PULSE 62; RESP 16; TEMP 36.5; O2SAT 100; BMI 19.6
[2025-07-10] MEDS: LACTATED RINGERS 1,000 ML 150 ML IV CONT (07:18)
--- NOTE | 2025-07-10 08:35 | P.PNAN_ITS ---
Anes - Initial Pre Proc Eval Procedure: Operation Date: 07/10/25 08:00 Proposed Procedures p Screening Colonoscopy - Kevyn Laguerre MD Date/Time: 07/10/25 08:35 Surgeon: Kevyn Laguerre MD Pre Op Diagnosis: Screening Patient Data Age: 60 Gender: F Height: 1.65 m Weight: 53.6 kg Last Vital Signs Temp 36.5 C 07/10/25 07:06 Pulse 62 07/10/25 07:06 Resp 16 07/10/25 07:06 BP 154/87 H 07/10/25 07:06 Pulse Ox 100 07/10/25 07:06 O2 Del Method Room Air 07/10/25 07:06 Allergies Allergy/AdvReac Type Severity Reaction Status Date / Time acetaminophen (From Vicodin) AdvReac Intermediate Nausea and Verified 07/10/25 07:04 Vomiting fentanyl AdvReac Intermediate Nausea and Verified 07/10/25 07:04 Vomiting hydrocodone (From Vicodin) AdvReac Intermediate Nausea and Verified 07/10/25 07:04 Vomiting Home Medications ?Medication ?Instructions ?Recorded ?Confirmed ?Type multivitamin (Daily Multi-Vitamin 1 tablet PO DAILY 06/21/25 History tablet) Patient hx anesthesia problems: none Family hx anesthesia problems: none Results Review: All pre-operative results and documents have been reviewed as part of the pre- operative evaluation. [facility] Past Medical History Medical History Ovarian mass, left Postmenopausal bleeding Surgical History Surgical History H/O laparoscopy 06/13/2024 lscope bilateral salpingo-oophorectomy H/O gynecological procedure hscope D&C ~ 2020 H/O breast biopsy H/O lumpectomy H/O wisdom tooth extraction Family History Family History Mother Hypertension Breast cancer Ovarian cancer Social History Social History Smoking status: Never smoker Alcohol intake: never Drinks per week: 1 Alcohol use details: occasional Substance use: never Substance use type: does not use Lack of Transportation: No Lack of Food: Never True Current Housing: I Have Housing Concerned About Future Housing: No Difficulty Paying Gas/Electric Bills: No Difficulty Paying for Meds: No Currently Unemployed: No Education: Master's Degree or Higher Difficulty w/ Childcare or Family Care: No Living arrangements: with family Additional living arrangements comments: daughter Occupation/Education: occupation Additional occupation/education comments: [employer] Gender identity (if verbalized by the patient): Female Sexual Orientation (if Verbalized by the Patient): Straight or Heterosexual Spiritual care concerns: No Anes - Eval Final PreProcedure Day of Procedure 07/10/25 08:35 Patient weight: normal Heart: regular rate and rhythm Lungs: clear to auscultation Airway: Mallampati scale class II Neurological: alert and oriented Last oral intake: >/= 8 hours ASA classification: II Emergent: no Anesthetic plan: proceed Anesthesia type and monitoring: general GIVS and standard monitoring Results Review: All pre-operative results and documents have been reviewed as part of the pre- operative evaluation. Informed Consent: The patient's anesthetic plan and its attendant risks and benefits were discussed with the patient/family/POA. Questions were solicited and answers provided to the satisfaction of the patient/family/POA.
--- NOTE | 2025-07-10 08:38 | PM.HPGS ---
History of Present Illness History of Present Illness Consent: Risks, benefits, and alternatives have been discussed and questions answered. Patient agrees to proceed with procedure. Chief complaint: Screening Narrative: Lakeshia Govea is a 60 year old female here for screening colonoscopy, last one 12 years ago Review of Systems Review of Systems: All systems reviewed & are unremarkable except as noted in HPI and below PMFSH Past Medical History Medical History (Updated 07/10/25 @ 08:38 by Kevyn Laguerre MD) Colon cancer screening Ovarian mass, left Postmenopausal bleeding Surgical History Surgical History H/O laparoscopy 06/13/2024 lscope bilateral salpingo-oophorectomy H/O gynecological procedure hscope D&C ~ 2020 H/O breast biopsy H/O lumpectomy H/O wisdom tooth extraction Family History Family History Mother Hypertension Breast cancer Ovarian cancer Social History Social History Smoking status: Never smoker Alcohol intake: never Drinks per week: 1 Alcohol use details: occasional Substance use: never Substance use type: does not use Lack of Transportation: No Lack of Food: Never True Current Housing: I Have Housing Concerned About Future Housing: No Difficulty Paying Gas/Electric Bills: No Difficulty Paying for Meds: No Currently Unemployed: No Education: Master's Degree or Higher Difficulty w/ Childcare or Family Care: No Living arrangements: with family Additional living arrangements comments: daughter Occupation/Education: occupation Additional occupation/education comments: [employer] Gender identity (if verbalized by the patient): Female Sexual Orientation (if Verbalized by the Patient): Straight or Heterosexual Spiritual care concerns: No Meds Home Medications and Allergies Home Medications ?Medication ?Instructions ?Recorded ?Confirmed ?Type multivitamin (Daily Multi-Vitamin 1 tablet PO DAILY 06/21/25 06/21/25 History tablet) Allergies Allergy/AdvReac Type Severity Reaction Status Date / Time acetaminophen (From Vicodin) AdvReac Intermediate Nausea and Verified 07/10/25 07:04 Vomiting fentanyl AdvReac Intermediate Nausea and Verified 07/10/25 07:04 Vomiting hydrocodone (From Vicodin) AdvReac Intermediate Nausea and Verified 07/10/25 07:04 Vomiting Vital Signs Vital Signs - 24 hr 07/10/25 07:06 Temperature 97.7 F Pulse Rate 62 Respiratory Rate 16 Blood Pressure 154/87 H Pulse Oximetry 100 Oxygen Delivery Room Air Exam Const: General: comfortable and no acute distress HENMT: Face/Nose/Sinus: Normal nares present Eyes: General: appearance normal, both eyes and all related structures Neck: Neck: no JVD Resp: Auscultation: clear to auscultation bilaterally Cardio: Rate: regular rate Rhythm: regular rhythm GI: Inspection: non-distended GI Palp: Yes Soft to palpation Skin: General skin exam: normal color Extrem: General: normal to inspection Psych: Mental Status: mental status grossly normal Assessment and Plan Assessment and plan (1) Colon cancer screening: Code(s): Z12.11 - Encounter for screening for malignant neoplasm of colon Status: Acute Assessment and Plan: colonoscopy
[2025-07-10 08:53] VITALS: BP 111/69; PULSE 64; RESP 19; O2SAT 100
[2025-07-10 09:03] VITALS: BP 119/69; PULSE 74; RESP 19; O2SAT 100
[2025-07-10 09:13] VITALS: BP 146/77; PULSE 63; RESP 20; O2SAT 100
== END 2025-07-10 09:18 | disposition home or self-care (01) ==
PROVIDERS: PCP Family Medicine; Referring Provider Obstetrics & Gynecology; Visit Provider Internal Medicine Gastroenterology
PROC: 0DJD8ZZ Inspection of Lower Intestinal Tract, Via Natural or Artificial Opening Endoscopic (ICD-10-PCS; CPT 45378; principal; 2025-07-10 08:00)
DX: Z12.11 Encounter for screening for malignant neoplasm of colon (principal)
CPT/HCPCS: 45378; J2704; J7120